=== PATIENT | male | born 1950 | race Caucasian/White ===

== ENCOUNTER → 2019-02-27 | Day surgery (SDC) | payer OTHER ==
--- NOTE | 2019-02-25 16:06 | Diagnostic Imaging Report ---
EXAMINATION: CHEST 2 VIEWS INDICATION: Preoperative COMPARISON: None FINDINGS: TUBES and LINES: None. LUNGS: The lung volumes are normal. No focal consolidation or pulmonary edema. PLEURA: No pleural effusion or pneumothorax. HEART AND MEDIASTINUM: The cardiomediastinal silhouette is normal in size and contour. BONES AND SOFT TISSUES: No acute fracture or dislocation. UPPER ABDOMEN: No free air under the diaphragm. IMPRESSION: No focal pneumonia or pulmonary edema. Signed by: Juan José Dorsey MD on 02/25/2019 4:03 PM
[2019-02-25 16:17] LABS: ANION GAP 13.1 mmol/L (8-16); BASOPHILS # (AUTO) 0.1 (0.0-0.1); BASOPHILS % 0.9 % (0.0-1.0); BLOOD UREA NITROGEN 18 mg/dL (7-26); BUN/CREATININE RATIO 18 (6-25); CALCIUM 9.8 mg/dL (8.4-10.2); CARBON DIOXIDE 27 mmol/L (22-29); CHLORIDE 101 mmol/L (98-107); CREATININE, SERUM 1.01 mg/dL (0.72-1.25); EOSINOPHILS # (AUTO) 0.1 (0.0-0.4); EOSINOPHILS % 1.8 % (0.0-6.0); EST GLOMERULAR FILTRATION RATE > 60 ML/MIN (60-); GLUCOSE 84 mg/dL (74-118); HEMATOCRIT 47.3 % (38.2-49.6); HEMOGLOBIN 15.4 g/dL (14.0-18.0); LYMPHOCYTES # (AUTO) 2.1 (1.0-3.2); MEAN CORPUSCULAR HEMOGLOBIN 29.8 pg (28-32); MEAN CORPUSCULAR HGB CONC 32.6 g/dL (31-35); MEAN CORPUSCULAR VOLUME 91.7 fL (81-99); MONOCYTES # (AUTO) 0.8 (0.2-0.8); MONOCYTES % 11.1 % (4.4-11.3); NEUTROPHILS % 56.1 % (38.7-80.0); PLATELET COUNT 207 x10e3/uL (140-360); POTASSIUM 5.1 mmol/L (3.5-5.1); RED BLOOD COUNT 5.16 x10e6/uL (4.3-5.7); RED CELL DISTRIBUTION WIDTH 12.9 % (11.7-14.4); SODIUM 136 mmol/L (136-145)
[~2019-02-27] MED LIST: BUPIVACAINE 0.25%/EPI 30ML SDV INJ ONE; FENTANYL CITRATE/PF 100MCG/2 ML INJ ONE; HYDROCODONE/APAP 7.5MG-325MG 1 EA TAB ONE; LEVOTHYROXINE88 MCG PO; LIDOCAINE HCL 1% LOCAL INJ 20 ML VIAL ONE; MIDAZOLAM HCL 2 MG/2 ML VIAL ONE
--- OUTSIDE RECORDS SUMMARY | 2019-02-27 06:56 | XMS REPORT ---
Author Author [facility] Address Unknown Phone Unavailable Care Team Providers Care Coremaker Machine Name Role Phone Lilian HUNTLEY Unavailable Unavailable Problems This patient has no known problems. Allergies, Adverse Reactions, Alerts This patient has no known allergies or adverse reactions. Medications This patient has no known medications. Results Test Description Test Time Test Comments Text Results Atomic Results Result Comments CHEST 2 VIEWS 2019-02-25 16:02:00 [facility] [address] [address] Patient Name: VINCE SWANSON MR #: [id number] : 1950 Age/Sex: 69/M Req #: [id number] [facility] Physician: Ordered by: KAIDEN HUNTLEY MD Report #: [id number] Location: OR Room/Bed: Procedure: [id number] DX/CHEST 2 VIEWS Exam Date: 02/25/19 Exam Time: 1543 REPORT STATUS: Signed EXAMINATION: CHEST 2 VIEWS INDICATION: Preoperative COMPARISON: None FINDINGS: TUBES and LINES: None. LUNGS: The lung volumes are normal. No focal consolidation or pulmonary edema. PLEURA: No pleural effusion or pneumothorax. HEART AND MEDIASTINUM: The cardiomediastinal silhouette is normal in size and contour. BONES AND SOFT TISSUES: No acute fracture or dislocation. UPPER ABDOMEN: No free air under the diaphragm. IMPRESSION: No focal pneumonia or pulmonary edema. Signed by: Mohit Srivastava MD on 02/25/2019 4:03 PM Dictated By: MOHIT SRIVASTAVA MD [id number] Transcribed By: ANJELICA on 02/25/19 1603 COPY TO: KAIDEN HUNTLEY MD
[2019-02-27 13:17] VITALS: BP 105/58
--- NOTE | 2019-02-27 13:41 | Operative Report ---
DATE OF PROCEDURE: 02/27/2019 SURGEON: Neo Melgar MD PREOPERATIVE DIAGNOSIS: Bilateral inguinal hernias. POSTOPERATIVE DIAGNOSIS: Bilateral inguinal hernias. OPERATION PERFORMED: Repair of bilateral inguinal hernias with large Prolene hernia systems. PRECINCT POLICE LIEUTENANT: STERLING Scales. ANESTHESIA: General. COMPLICATIONS: None. ESTIMATED BLOOD LOSS: Minimal. PROCEDURE IN DETAIL: With the patient lying in bed in the supine position under good general anesthesia, the lower abdomen was prepped with Betadine solution and draped in the usual manner. Both sites were done in similar fashion. An incision was made in the inguinal canal, carried down through the subcutaneous tissue down to the external oblique aponeurosis. External oblique was opened along the length of its fibers and the external inguinal ring was opened. The cord was then mobilized and retracted. Examination of the direct space on both sides revealed bulging direct hernia sacs, there were no indirect hernia sacs in either side. Both direct hernia sacs were then imbricated with pursestring sutures of 2-0 silk and reduced. The preperitoneal space was then entered through the internal ring and a pocket was created without any difficulty. A large Prolene hernia system was placed in both sides and the underlay patch was deployed without any problems, the overlay patch was then placed over the floor and split inferolaterally to allow for passage of the cord. The mesh was then sutured to the conjoint tendon and the inguinal ligament using interrupted sutures of 2-0 Vicryl. The whole area was thoroughly irrigated. Perfect hemostasis was ascertained. All layers were infiltrated on the way out with solution of 0.25% Marcaine and 1% lidocaine mixed in equal parts. The external oblique aponeurosis was closed with a running suture of 2-0 Vicryl, the subcutaneous tissue was approximated with 3-0 plain, and the skin was closed with clips. Dressings were applied. The sponge, lap, and needle count was correct. The patient tolerated the procedure well and returned to the recovery room in stable condition. Neo Melgar MD JLR/MODL /[id number]
== END | disposition home or self-care (01) ==
LOC: OR 06:50
PROVIDERS: ATTEND Surgery
DX: K40.20 Bilateral inguinal hernia, without obstruction or gangrene, not specified as recurrent (principal); E03.9 Hypothyroidism, unspecified; Z01.810 Encounter for preprocedural cardiovascular examination; Z01.812 Encounter for preprocedural laboratory examination; Z01.818 Encounter for other preprocedural examination
CPT/HCPCS: 36415; 49505; 71046; 80048; 85025; 93005; C1781; J2001; J2250; J3010

== ENCOUNTER → 2021-03-21 | Emergency (ER) | payer OTHER ==
[~2021-03-21] VITALS: Ht 177.8 cm; Wt 72.6 kg
[~2021-03-21] MED LIST changes: +BACITRACIN ZINC 0.9GM TP ONE; -BUPIVACAINE 0.25%/EPI 30ML SDV INJ ONE; +DIPHTH/TETANUS/ACEL. PERTUSSIS 0.5 ML SYR IM ONE; -FENTANYL CITRATE/PF 100MCG/2 ML INJ ONE; -HYDROCODONE/APAP 7.5MG-325MG 1 EA TAB ONE; +LIDOCAINE HCL 1% LOCAL INJ 20 ML VIAL INJ ONE; -LIDOCAINE HCL 1% LOCAL INJ 20 ML VIAL ONE; -MIDAZOLAM HCL 2 MG/2 ML VIAL ONE; +TETANUS/DIPHTHERIA TOX ADULT 0.5 ML SYR ONE
[2021-03-21 17:10] VITALS: BP 136/71
== END | disposition home or self-care (01) ==
LOC: ER 17:29
DX: S81.812A Laceration without foreign body, left lower leg, initial encounter (principal); W45.8XXA Other foreign body or object entering through skin, initial encounter; Y92.008 Other place in unspecified non-institutional (private) residence as the place of occurrence of the external cause; E03.9 Hypothyroidism, unspecified
CPT/HCPCS: 12002; 73590; 90471; 90714; 99283; J2001